=== PATIENT | female | born 1970 | race Caucasian/White ===

== ENCOUNTER → 2016-08-29 | Outpatient (CLI) | payer MEDICARE ==
[~2016-08-29] VITALS: Ht 165.1 cm; Wt 67.1 kg
[~2016-08-29] MED LIST: GABAPENTIN100 MG PO; KETOCONAZOLE15 GM TP; KLOR-CON 1010 MEQ PO; METHIMAZOLE5 MG PO; NORVASC 5 MG TAB5 MG PO; OMEPRAZOLE20 MG PO; REMICADE I100 MG/VIA INJ; TRAZODONE HCL50 MG PO
== END ==
LOC: OPSV 12:48
DX: K50.812 Crohn's disease of both small and large intestine with intestinal obstruction (principal)
CPT/HCPCS: 96375; 96413; 96415; J1720; J1745; Q0163

== ENCOUNTER → 2016-10-24 | Outpatient (CLI) | payer MEDICARE ==
[~2016-10-24] VITALS: Ht 165.1 cm; Wt 67.1 kg
== END ==
LOC: OPSV 12:57
DX: K50.812 Crohn's disease of both small and large intestine with intestinal obstruction (principal)
CPT/HCPCS: 96375; 96413; 96415; J1720; J1745; Q0163

== ENCOUNTER → 2021-01-25 | Day surgery (SDC) | payer MEDICARE ==
[~2021-01-25] MED LIST changes: +B-12500 MCG PO; +CIMZIA400 MG/2 M SQ; +FOSAMAX70 MG PO; +LEVOTHYROXINE50 MC1 PO; +REMERON 15 MG T15 MG PO; +WELLBUTRIN XL150 MG PO
== END | disposition home or self-care (01) ==
LOC: OR 07:21
DX: Z12.11 Encounter for screening for malignant neoplasm of colon (principal); K50.80 Crohn's disease of both small and large intestine without complications; K64.4 Residual hemorrhoidal skin tags; Z20.822 Contact with and (suspected) exposure to COVID-19; I10 Essential (primary) hypertension; K21.9 Gastro-esophageal reflux disease without esophagitis; F32.9 Major depressive disorder, single episode, unspecified; E03.9 Hypothyroidism, unspecified
CPT/HCPCS: J2704; J7040